=== PATIENT | male | born 1995 | race American Indian/Alaskan Native ===

== ENCOUNTER 2018-01-28 00:45 | Emergency (ER) | payer SELFPAY ==
[2018-01-28 01:08] VITALS: BP 128/73
[2018-01-28 02:32] LABS: Bilirubin,Urine NEG (Negative); Blood,Urine NEG (Negative); Color,Urine Straw (Yellow); Mucus,Urine FEW /HPF; Protein,Urine <15 mg/dL mg/dL (Negative); Urobilinogen,Urine < 2.0 mg/dL (<2.0); WBC,Urine < 1.0 /HPF (0.0-6.0)
--- NOTE | 2018-01-28 04:57 | Emergency Department Report ---
ED Male HPI - General Chief complaint: Urogenital-Male Stated complaint: PENIS PAIN Time Seen by Provider: 01/28/18 04:00 Source: patient Mode of arrival: Ambulatory Limitations: No Limitations - History of Present Illness Initial comments: This is a 22 y.o. male that presents with penile pain with urination for 2 weeks. Patient reports pain as a burning sensation that only occurs during and after urination. Admits to unprotected intercourse with one female partner. He is not sure if this is a STD but worried possibly UTI. Denies abdominal cramping , low back pain, discharge, odor, fever, urgency, frequency, bumps on penis, testicular pain, or swelling. MD Complaint: dysuria -: week(s) (2 weeks) Location: penis Radiation: none Severity: mild Severity scale (0 -10): 4 Quality: burning Consistency: intermittent Improves with: none Worsens with: urination denies other symptoms - Related Data Sexually active: Yes Previous Rx's Medication Instructions Recorded Last Taken Type Omeprazole [PriLOSEC] 20 mg PO QDAY #14 capsule. 04/08/16 Unknown Rx traMADol [Ultram 50 MG tab] 50 mg PO Q6HR PRN #10 tablet 04/08/16 Unknown Rx Cyclobenzaprine [Flexeril] 10 mg PO TID PRN #12 tablet 01/24/17 Unknown Rx Naproxen [Naprosyn TAB] 500 mg PO BID PRN #25 tablet 01/24/17 Unknown Rx Allergies Allergy/AdvReac Type Severity Reaction Status Date / Time No Known Allergies Allergy Verified 01/28/18 01:31 ED Review of Systems ROS: Stated complaint: PENIS PAIN Other details as noted in HPI Constitutional: denies: chills, fever Respiratory: denies: cough, shortness of breath, wheezing Cardiovascular: denies: chest pain, palpitations, edema, syncope Gastrointestinal: denies: abdominal pain, nausea, vomiting, diarrhea Genitourinary: dysuria. denies: urgency, frequency, hematuria, discharge, testicular pain, testicular mass Musculoskeletal: denies: back pain, joint swelling, arthralgia Skin: denies: rash, lesions Neurological: denies: headache, weakness, paresthesias Psychiatric: denies: anxiety, depression ED Past Medical Hx - Past Medical History Previous Medical History?: Yes Additional medical history: heart - Surgical History Past Surgical History?: No - Social History Smoking Status: Current Every Day Smoker Substance Use Type: None - Medications Home Medications: Home Medications Medication Instructions Recorded Confirmed Last Taken Type Omeprazole [PriLOSEC] 20 mg PO QDAY #14 capsule. 04/08/16 Unknown Rx traMADol [Ultram 50 MG tab] 50 mg PO Q6HR PRN #10 tablet 04/08/16 Unknown Rx Cyclobenzaprine [Flexeril] 10 mg PO TID PRN #12 tablet 01/24/17 Unknown Rx Naproxen [Naprosyn TAB] 500 mg PO BID PRN #25 tablet 01/24/17 Unknown Rx ED Physical Exam - General Limitations: No Limitations General appearance: alert, in no apparent distress - Respiratory Respiratory exam: Present: normal lung sounds bilaterally. Absent: respiratory distress, wheezes, rales, rhonchi, stridor, accessory muscle use, decreased breath sounds - Cardiovascular Cardiovascular Exam: Present: regular rate, normal rhythm, normal heart sounds. Absent: systolic murmur, diastolic murmur, rubs, gallop - GI/Abdominal GI/Abdominal exam: Present: soft, normal bowel sounds. Absent: distended, tenderness, guarding, rebound, rigid, organomegaly, mass - Back Exam Back exam: Present: normal inspection, full ROM. Absent: CVA tenderness (R), CVA tenderness (L), muscle spasm, paraspinal tenderness, vertebral tenderness, rash noted - Neurological Exam Neurological exam: Present: alert, oriented X3, normal gait - Psychiatric Psychiatric exam: Present: normal affect, normal mood - Skin Skin exam: Present: warm, dry, intact, normal color. Absent: rash ED Course Vital Signs 01/28/18 00:57 Temperature 98.4 F Pulse Rate 74 Respiratory 18 Rate Blood Pressure 128/73 O2 Sat by Pulse 100 Oximetry ED Medical Decision Making - Medical Decision Making This is a 22 y.o. male presents with dysuria x 2 weeks. Patient was examined by me. vitals stable. Patient is afebrile. Obtained UA and GC. Urine is normal. G/ C pending. Discussed results with patient and given option to empirically treat for STD exposure. Patient request to be treated. Given rocephin 250 mg IM and azithromycin 1 g po in ER. Discharged home in stable condition. Discussed prevention options. F/U with PCP or Health Department for STD screening. Critical care attestation.: If time is entered above; I have spent that time in minutes in the direct care of this critically ill patient, excluding procedure time. ED Disposition Clinical Impression: STD exposure Disposition: DC-01 TO HOME OR SELFCARE Is pt being admited?: No Does the pt Need Aspirin: No Condition: Stable Instructions: Safe Sex (ED), Sexually Transmitted Diseases (ED) Additional Instructions: void drinking alcohol for 24 hours. Continue safe sexual intercourse. Follow up with Primary Care Provider or health department for full screening. Referrals: [facility] [Outside] - 3-5 Days [facility] [Outside] - 3-5 Days [facility] [Outside] - 3-5 Days Forms: Work/School Release Form(ED) Time of Disposition: 05:03 Print Language: ESTONIAN
[2018-01-28] MEDS ORDERED: ZITHROMAX PO ONE (05:01)
[2018-01-28] MEDS ORDERED: XYLOCAINE 1% MPF 5 mL INFILTRATI ONE (05:01)
[2018-01-28] MEDS ORDERED: ROCEPHIN IM ONE (05:01)
== END 2018-01-28 05:54 | disposition home or self-care (01) ==
LOC: ED 00:45
DX: R30.0 Dysuria (principal); N48.89 Other specified disorders of penis; F17.200 Nicotine dependence, unspecified, uncomplicated
CPT/HCPCS: 81001; 99283; J0696

== ENCOUNTER 2018-02-11 22:37 | Emergency (ER) | payer SELFPAY ==
[2018-02-11 23:52] VITALS: BP 104/74
[2018-02-12 01:52] LABS: Bilirubin,Urine NEG (Negative); Blood,Urine NEG (Negative); Color,Urine Straw (Yellow); Protein,Urine <15 mg/dL mg/dL (Negative); Urobilinogen,Urine < 2.0 mg/dL (<2.0); WBC,Urine < 1.0 /HPF (0.0-6.0)
--- NOTE | 2018-02-12 02:44 | Emergency Department Report ---
ED Male HPI - General Chief complaint: Urogenital-Male Stated complaint: PAINFUL URINATION Time Seen by Provider: 02/12/18 02:31 Source: patient Mode of arrival: Ambulatory Limitations: No Limitations - History of Present Illness Initial comments: Patient here today reports that he is having in intermittent mild burning sensation. He said it kind of like a small burning feeling. Patient is sexually active not using condoms. Reports that he is sexually active with his girlfriend was not having any symptoms. Patient denies any nausea vomiting or back pain. Denies any fever or chills or abdominal pain. Denies any penile discharge. Denies any burning at present but says it comes and goes. Patient was here on 01/28/2018 and was treated for STD prophylaxis the patient he had small amount of mucus in his urine. He was treated for gonorrhea and chlamydia. Patient was instructed to follow-up in 7-10 days and he said he did not because he was trying to make an appointment and he could not get an appointment. He finally said he is just here to get rechecked. I discussed the patient that I cannot recheck him because he need to go to the health department to get that done as was previously instructed. She has not concerned for STD but he said he wants to get rechecked to make sure that the mucus is gone. Complaint: dysuria, other (treated on 01/28/2018 for gonorrhea and chlamydia) Onset/Timin -: month(s) Severity: mild Severity scale (0 -10): 0 Quality: burning Consistency: intermittent dysuria, other (patient is concerned for STD without any symptoms and he did not get rechecked after treated on 01/28/2018 so he is back to get rechecked). denies: discharge, swelling, mass, rash, urinary retention, blood in urine, fever, nausea/vomiting, incontinence - Related Data Sexually active: Yes (with one partner per patient) Home Medications Medication Instructions Recorded Confirmed Last Taken No Known Home Medications [No 02/12/18 02/12/18 Unknown Reported Home Medications] Allergies Allergy/AdvReac Type Severity Reaction Status Date / Time No Known Allergies Allergy Verified 01/28/18 01:31 ED Review of Systems ROS: Stated complaint: PAINFUL URINATION Other details as noted in HPI Constitutional: denies: chills, fever Eyes: denies: eye pain, eye discharge, vision change ENT: denies: throat pain Respiratory: denies: cough, shortness of breath, wheezing Cardiovascular: denies: chest pain, palpitations Gastrointestinal: denies: abdominal pain, nausea, vomiting, diarrhea, constipation, hematemesis, melena, hematochezia Genitourinary: dysuria. denies: urgency, frequency, hematuria, discharge, testicular pain, testicular mass Musculoskeletal: denies: back pain, joint swelling, arthralgia, myalgia Skin: denies: rash, lesions, pruritus Neurological: denies: headache ED Past Medical Hx - Past Medical History Previous Medical History?: Yes Additional medical history: heart. Treated empirically for STD on 01/28/2018 - Surgical History Past Surgical History?: No - Family History Family history: hypertension - Social History Smoking Status: Light Tobacco Smoker Substance Use Type: None Other Social History: Single and lives with family - Medications Home Medications: Home Medications Medication Instructions Recorded Confirmed Last Taken Type No Known Home Medications [No 02/12/18 02/12/18 Unknown History Reported Home Medications] ED Physical Exam - General Limitations: No Limitations General appearance: alert, in no apparent distress - Head Head exam: Present: atraumatic, normocephalic - Eye Eye exam: Present: normal appearance, PERRL, EOMI - ENT ENT exam: Present: normal exam, normal orophraynx, mucous membranes moist - Neck Neck exam: Present: normal inspection, full ROM. Absent: tenderness, lymphadenopathy - Respiratory Respiratory exam: Present: normal lung sounds bilaterally. Absent: respiratory distress, chest wall tenderness - Cardiovascular Cardiovascular Exam: Present: regular rate, normal rhythm, normal heart sounds. Absent: systolic murmur, diastolic murmur, rubs, gallop - GI/Abdominal GI/Abdominal exam: Present: soft, normal bowel sounds. Absent: distended, tenderness, guarding, rebound, rigid - Extremities Exam Extremities exam: Present: normal inspection, full ROM, normal capillary refill , other (no no clubbing, cyanosis or edema. +2 pulses all extremities and no neurovascular compromise). Absent: tenderness, pedal edema, joint swelling, calf tenderness - Back Exam Back exam: Present: normal inspection, full ROM, other (ambulates without any difficulties). Absent: tenderness, CVA tenderness (R), CVA tenderness (L), muscle spasm, paraspinal tenderness, vertebral tenderness, rash noted - Neurological Exam Neurological exam: Present: alert, oriented X3, normal gait - Psychiatric Psychiatric exam: Present: normal affect, normal mood - Skin Skin exam: Present: warm, dry, intact, normal color. Absent: rash ED Course Vital Signs 02/11/18 23:33 Temperature 98.2 F Pulse Rate 74 Respiratory 16 Rate Blood Pressure 104/74 O2 Sat by Pulse 100 Oximetry - Reevaluation(s) Reevaluation #1: 02/12/18 02:55 Patient had an uneventful ED course. I discussed with him that his urinalysis is normal and he doesn't have any mucopus and since he is not having any symptoms and he was complaining of burning in because he wanted to have rechecked on, I told him that he needs to follow-up at the health department to get STD recheck as was previously instructed on 01/28/2018. I discussed with him that I'm not going to recheck him because he needs to follow up with outpatient STD check. He voiced understanding and said that he will call places that I refer him to in the morning to schedule an appointment or I told him he can just walk in. ED Medical Decision Making - Lab Data Lab Results 02/12/18 Range/Units 01:09 Urine Color Straw (Yellow) Urine Turbidity Clear (Clear) Urine pH 6.0 (5.0-7.0) Ur Specific Home 1.005 (1.003-1.030) Urine Protein <15 mg/dl (Negative) mg/dL Urine Glucose (UA) Neg (Negative) mg/dL Urine Ketones Neg (Negative) mg/dL Urine Blood Neg (Negative) Urine Nitrite Neg (Negative) Urine Bilirubin Neg (Negative) Urine Urobilinogen < 2.0 (<2.0) mg/dL Ur Leukocyte Esterase Neg (Negative) Urine WBC (Auto) < 1.0 (0.0-6.0) /HPF Urine RBC (Auto) 1.0 (0.0-6.0) /HPF Patient was treated for STD 01/28/2018 because he had some mucus in his urine. Today's urine is normal. - Medical Decision Making ED course: Pt here reporting that he was here on 01/28/2018 and was treated for STD. Patient is here daily since he is having mild burning and sometimes none at present. He later said that he did not follow-up as was instructed and he is here to check to make sure everything is okay because they told him last time that he had mucus in his urine. He did for gonorrhea and chlamydia and 09/2017. I discussed patient that he needs to follow up with health department or some [facility] to get STD check done. Discussed with him that his urinalysis done today did not show any mucus and urine is normal without any abnormal findings. Pt is asymptomatic and is anxious about getting rechecked to make sure that he doesn't have any mucus in his urine. Patient was understanding of discharge plan and also that he needs to practice safe sex prevent from getting STD. Critical care attestation.: If time is entered above; I have spent that time in minutes in the direct care of this critically ill patient, excluding procedure time. ED Disposition Clinical Impression: Concern about STD in male without diagnosis Disposition: DC-01 TO HOME OR SELFCARE Is pt being admited?: No Does the pt Need Aspirin: No Condition: Stable Instructions: Safe Sex (ED), Sexually Transmitted Diseases (ED) Additional Instructions: Please follow up [facility] Department course outside [facility] for [facility]D testing after being treated in the ED 15 days ago. You were treated for gonorrhea and chlamydia on 01/28/2018 and there is no need to be treated again U will need to follow-up as was instructed by previous provider Practice safe sex. Referrals: [facility] [Outside] - 02/13/18 [facility] [Outside] - 02/13/18 [facility] [Outside] - 02/13/18 Forms: Work/School Release Form(ED)
== END 2018-02-12 03:05 | disposition home or self-care (01) ==
LOC: ED 22:37
DX: R30.0 Dysuria (principal); Z87.891 Personal history of nicotine dependence
CPT/HCPCS: 81001; 99283

== ENCOUNTER 2018-07-02 13:45 | Emergency (ER) | payer SELFPAY ==
--- NOTE | 2018-07-02 16:47 | Emergency Department Report ---
ED Chest Pain HPI - General Chief Complaint: Chest Pain Stated Complaint: CHEST PAIN/BACK PAIN Time Seen by Provider: 07/02/18 16:43 Source: patient Mode of arrival: Ambulatory Limitations: No Limitations - History of Present Illness Initial Comments: She is a 23-year-old male that presents emergency room with complaints of chest pain that started at 7:30 this morning. Patient states that the pain is a 6 out of 10. Patient describes the pain as described pain as a crushing, stabbing pain in his left chest. Patient denies shortness of breath and cough. Patient denies fever and chills. Patient denies diaphoresis. Patient states the chest pain is better with rest and is worse with movement and exertion. MD Complaint: chest pain -: Sudden Onset: during rest Pain Location: left chest Pain Radiation: none Severity: severe Severity scale (0 -10): 6 Quality: sharp Consistency: constant Improves With: rest Worsens With: exertion, movement re: denies: nausea, vomting, diaphoresis, dyspnea, sense of impending doom Other Symptoms: denies: cough, fever, syncope, rash, acid taste in mouth, leg swelling, palpitations, burping Treatments Prior to Arrival: none Aspirin use within the Past 7 Days: (0) No - Related Data On Oral Contraceptives: No Previous Rx's Medication Instructions Recorded Last Taken Type Ibuprofen 800 mg PO Q8HR PRN #20 tablet 07/02/18 Unknown Rx Allergies Allergy/AdvReac Type Severity Reaction Status Date / Time No Known Allergies Allergy Verified 07/02/18 13:55 Heart Score - HEART Score History: Slightly suspicious EKG: Normal Age: < 45 Risk factors: No known risk factors Troponin: < normal limit HEART Score: 0 ED Review of Systems ROS: Stated complaint: CHEST PAIN/BACK PAIN Other details as noted in HPI Constitutional: denies: chills, fever Eyes: denies: eye pain, eye discharge, vision change ENT: denies: ear pain, throat pain Respiratory: denies: cough, shortness of breath, wheezing Cardiovascular: chest pain. denies: palpitations Endocrine: no symptoms reported Gastrointestinal: denies: abdominal pain, nausea, diarrhea Genitourinary: denies: urgency, dysuria Musculoskeletal: denies: back pain, joint swelling, arthralgia Skin: denies: rash, lesions Neurological: denies: headache, weakness, paresthesias Psychiatric: denies: anxiety, depression Hematological/Lymphatic: denies: easy bleeding, easy bruising ED Past Medical Hx - Past Medical History Previous Medical History?: No Additional medical history: Treated empirically for STD on 01/28/2018 - Surgical History Past Surgical History?: No - Family History Family history: no significant - Social History Smoking Status: Current Every Day Smoker Substance Use Type: Alcohol - Medications Home Medications: Home Medications Medication Instructions Recorded Confirmed Last Taken Type Ibuprofen 800 mg PO Q8HR PRN #20 tablet 07/02/18 Unknown Rx ED Physical Exam - General Limitations: No Limitations General appearance: alert, in no apparent distress - Head Head exam: Present: atraumatic, normocephalic - Eye Eye exam: Present: normal appearance - ENT ENT exam: Present: mucous membranes moist - Neck Neck exam: Present: normal inspection - Respiratory Respiratory exam: Present: normal lung sounds bilaterally, chest wall tenderness. Absent: respiratory distress - Cardiovascular Cardiovascular Exam: Present: regular rate, normal rhythm. Absent: systolic murmur, diastolic murmur, rubs, gallop - GI/Abdominal GI/Abdominal exam: Present: soft, normal bowel sounds - Rectal Rectal exam: Present: deferred - Extremities Exam Extremities exam: Present: normal inspection - Back Exam Back exam: Present: normal inspection - Neurological Exam Neurological exam: Present: alert, oriented X3 - Psychiatric Psychiatric exam: Present: normal affect, normal mood - Skin Skin exam: Present: warm, dry, intact, normal color. Absent: rash ED Course Vital Signs 07/02/18 07/02/18 07/02/18 13:55 17:10 17:15 Temperature 98.9 F Pulse Rate 73 77 Respiratory 18 13 18 Rate Blood Pressure 141/91 O2 Sat by Pulse 100 100 Oximetry 07/02/18 18:43 Temperature Pulse Rate Respiratory Rate Blood Pressure 136/83 O2 Sat by Pulse 100 Oximetry - Reevaluation(s) Reevaluation #1: Just all results with patient. Patient's labs are unremarkable. Patient voiced understanding. Patient given discharge instructions. Patient instructed to follow-up with primary care in 2- 4 days. return to ER instructions given to patient. 07/02/18 18:28 FRANCOISE score - Francoise Score Age > 65: (0) No Aspirin use within the Past 7 Days: (0) No 3 or more CAD Risk Factors: (0) No 2 or more Angina events in past 24 hrs: (0) No Known CAD with more than 50% Stenosis: (0) No Elevated Cardiac Markers: (0) No ST Deviation Greater than 0.5mm: (0) No FRANCOISE Score: 0 ED Medical Decision Making - Lab Data Result diagrams: 07/02/18 16:54 07/02/18 16:54 - EKG Data -: EKG Interpreted by [facility] EKG shows normal: sinus rhythm, axis, intervals, QRS complexes, ST-T waves Rate: normal - EKG Data Interpretation: no acute changes, normal EKG - Radiology Data Radiology results: report reviewed, image reviewed FINAL REPORT EXAM: XR CHEST ROUTINE 2V HISTORY: Chest Pain TECHNIQUE: Frontal and lateral chest radiographs. PRIORS: None. FINDINGS: The cardiomediastinal silhouette is normal. No focal consolidation. No pleural effusion. No pneumothorax. No acute osseous abnormality. Bifid right anterior 6th rib is noted. IMPRESSION: No acute cardiopulmonary process. Transcribed By: MG Dictated By: GREGORY LIZ MD Electronically Authenticated By: GREGORY LIZ MD Signed Date/Time: 07/02/18 5660 - Medical Decision Making Patient is a 23-year-old male that presents to emergency room with chest pain. Findings are unremarkable. All labs reviewed. Chest x-ray reviewed. Chest x- ray was negative. Findings consistent with costochondritis. Patient will be treated with ibuprofen and discharged home. - Differential Diagnosis cp./Chest wall pain. Costochondritis. Muscular wall pain. Critical care attestation.: If time is entered above; I have spent that time in minutes in the direct care of this critically ill patient, excluding procedure time. ED Disposition Clinical Impression: Costochondritis, acute Chest pain Qualifiers: Chest pain type: unspecified Qualified Code(s): R07.9 - Chest pain, unspecified Disposition: DC-01 TO HOME OR SELFCARE Is pt being admited?: No Does the pt Need Aspirin: No Condition: Stable Instructions: Chest Pain (ED), Costochondritis (ED) Additional Instructions: Patient follow up with primary care in 2-3 days. Patient to return to ER if condition worsens. Patient to take prescription as directed. Patient states all when necessary for pain. Patient increase water. Patient to rest. Patient to avoid strenuous exercise and activity until cleared by primary care. Increase water Prescriptions: Ibuprofen 800 mg PO Q8HR PRN #20 tablet PRN Reason: Pain, Mild (1-3) Referrals: PRIMARY CARE, [Primary Care Provider] - 2-3 Days Time of Disposition: 18:34
[2018-07-02 17:32] LABS: Alanine Aminotransferase 14 units/L (7-56); Albumin 4.4 g/dL (3.9-5); BUN/Creatinine Ratio 11; Basophils % (Auto) 1.2 % (0.0-1.8); Blood Urea Nitrogen 10 mg/dL (9-20); Calcium 9.2 mg/dL (8.4-10.2); Eosinophils # (Auto) 0.3 K/mm3 (0.0-0.4); Eosinophils % (Auto) 7.8 % (0.0-4.3); Hematocrit 43.6 % (35.5-45.6); Hemoglobin 14.2 gm/dl (11.8-15.2); Hemolysis Index 17; Lymphocytes # (Auto) 1.5 K/mm3 (1.2-5.4); Lymphocytes % (Auto) 37.8 % (13.4-35.0); Mean Corpuscular HGB Conc 33 % (32-34); Mean Corpuscular Hemoglobin 28 pg (28-32); Mean Corpuscular Volume 87 fl (84-94); Monocytes # (Auto) 0.6 K/mm3 (0.0-0.8); Monocytes % (Auto) 15.5 % (0.0-7.3); Platelet Count 167 K/mm3 (140-440); Red Blood Count 5.01 M/mm3 (3.65-5.03)
[2018-07-02 17:32] LABS: Amorphous Crystals,Urine 2+; Bilirubin,Urine NEG (Negative); Blood,Urine NEG (Negative); Color,Urine Yellow (Yellow); Protein,Urine <15 mg/dL mg/dL (Negative); Urobilinogen,Urine < 2.0 mg/dL (<2.0)
--- NOTE | 2018-07-02 17:44 | XRay Report ---
FINAL REPORT EXAM: XR CHEST ROUTINE 2V HISTORY: Chest Pain TECHNIQUE: Frontal and lateral chest radiographs. PRIORS: None. FINDINGS: The cardiomediastinal silhouette is normal. No focal consolidation. No pleural effusion. No pneumothorax. No acute osseous abnormality. Bifid right anterior 6th rib is noted. IMPRESSION: No acute cardiopulmonary process.
[2018-07-02 17:48] LABS: Amphetamine Screen,Urine PRESUMPTIVE NEGATIVE; Benzodiazepines Screen,Urine PRESUMPTIVE NEGATIVE; Cannabinoid Screen,Urine PRESUMPTIVE NEGATIVE; Cocaine Screen,Urine PRESUMPTIVE NEGATIVE; Methadone Screen,Urine PRESUMPTIVE NEGATIVE; Opiate Screen,Urine PRESUMPTIVE NEGATIVE
[2018-07-02 18:44] VITALS: BP 136/83
== END 2018-07-02 18:56 | disposition home or self-care (01) ==
LOC: ED 13:45
DX: M94.0 Chondrocostal junction syndrome [Tietze] (principal); F17.200 Nicotine dependence, unspecified, uncomplicated
CPT/HCPCS: 36415; 71046; 80053; 80307; 81001; 84484; 85025; 85379; 93005; 93010

== ENCOUNTER 2019-09-26 13:44 | Emergency (ER) | payer OTHER ==
[2019-09-26 14:03] VITALS: BP 119/69
--- NOTE | 2019-09-26 18:30 | Emergency Department Report ---
Chief Complaint: Upper Respiratory Infection Stated Complaint: COLD SYM/BODY SORE Time Seen by Provider: 09/26/19 18:21 - HPI History of Present Illness: 24-year-old -[place] male presents to the emergency room for flulike symptoms 1 week. Patient reports his been taking Motrin and Tylenol but no help. Patient last took Advil 10 PM last night. Patient comes in with stable vital signs and afebrile. Patient reports he has a mild cough. Patient denies any past medical history currently takes no medications on a daily basis. - Exam Vital Signs: Vital Signs 09/26/19 14:02 Temperature 98.4 F Pulse Rate 84 Respiratory 16 Rate Blood Pressure 119/69 [Right] O2 Sat by Pulse 99 Oximetry Physical Exam: Gen: alert oriented NAD Cardic: regular rate and rhythm no murmurs appreciated Resp: Clear to auscultation bilateral no wheezing no rales or rhonchi. Abdomen: Soft nontender nondistended normal bowel sounds. Neuro: Normal gaitCranial Nerves: (II, III, IV, ) Visual acuity 20/20 bilaterally. Visual luna normal in all quadrants. Pupils are round, reactive to light and accommodation. Extraocular movements are intact without ptosis. (V) Facial sensation is intact to bilaterally to dull, sharp, and light touch stimuli. (VII) Facial muscle strength is normal and equal bilaterally. (VIII) Hearing is normal bilaterally. (IX, X) Palate and uvula elevate symmetrically, with intact gag reflex. Voice is normal. (XI) Shoulder shrug strong, and equal bilaterally. (XII) Tongue protrudes midline and moves symmetrically. Sensation: Sensation is intact bilaterally to pain and light touch. Two-point discrimination is intact. Motor: Good muscle tone. Strength is 5/5 bilaterally at the deltoid, biceps, triceps, quadriceps, and hamstrings. Cerebellar: [id number] and [id number] test normal bilaterally. l. Gait is steady with a normal base. Coordination is intact as measured by heel walk and toe walk. MSE screening note: Focused history and physical exam performed. Due to findings the following was ordered: 24-year-old -[place] male presents to the emergency room for flulike symptoms 1 week. Patient reports his been taking Motrin and Tylenol but no help. Patient last took Advil 10 PM last night. Patient comes in with stable vital signs and afebrile. Patient reports he has a mild cough. Patient denies any past medical history currently takes no medications on a daily basis. Discussed the patient to do supportive care such as [id number] Claritin/Zyrtec's, Robitussin ibuprofen and/or Tylenol for pain. Discussed the patient to increase his fluid intake. ED Disposition for MSE Clinical Impression: Acute viral syndrome Is pt being admited?: No Does the pt Need Aspirin: No Condition: Stable Additional Instructions: Supportive care such as [id number] Claritin/Zyrtec's, Robitussin ibuprofen and/or Tylenol for pain. Discussed the patient to increase his fluid intake. Referrals: PRIMARY CARE, [Primary Care Provider] - 3-5 Days Forms: Work/School Release Form(ED)
== END 2019-09-26 18:37 | disposition left against medical advice (07) ==
LOC: ED 13:44
DX: B34.9 Viral infection, unspecified (principal)
CPT/HCPCS: 99281